=== PATIENT | female | born 1995 | race American Indian/Alaskan Native ===

== ENCOUNTER 2020-08-23 13:51 | Emergency (ER) | payer SELFPAY ==
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
--- NOTE | 2020-08-23 15:00 | Cat Scan Report ---
CT head/brain wo con INDICATION: headache with left periorbital pain and swelling. TECHNIQUE: Routine CT head without contrast. All CT scans at this location are performed using CT dos e reduction for ALARA by means of automated exposure control. COMPARISON: None. FINDINGS: BRAIN / INTRACRANIAL CONTENTS: No acute hemorrhage, mass effect, midline shift, or hydrocephalus. No appreciable acute large territorial or lacunar infarct. No chronic infarct or focal atrophy. Normal b rain volume and ventricular/sulcal size for age. ORBITS: See separate maxillofacial CT report. SINUSES / MASTOIDS: No significant abnormality of visualized sinuses and mastoid air cells. ADDITIONAL FINDINGS: None. IMPRESSION: 1. No acute intracranial abnormality. Signer Name: James Dent MD Signed: 08/23/2020 2:56 PM Workstation Name: [id number]
--- NOTE | 2020-08-23 15:04 | Cat Scan Report ---
CT MAXILLOFACIAL WITHOUT CONTRAST INDICATION: headache with left periorbital pain and swelling. TECHNIQUE: All CT scans at this location are performed using CT dose reduction for ALARA by means of automated e xposure control. COMPARISON: None available. FINDINGS: There are mildly displaced bilateral nasal fractures. There is also a moderately displaced fracture of the left medial orbital wall with slight herniation of the left medial rectus muscle into the fracture defect. There is some air within the left orbit. T here is no evidence of injury to the globe. There are no metallic foreign bodies. Paranasal sinuses appear clear. Mastoid air cells are clear. IMPRESSION: 1. Moderately displaced fracture of the left medial orbital wall with partial herniation of the adj acent medial rectus into the fracture defect, placing that muscle at risk of possible entrapment, for which clinical evaluation is advised. 2. Mildly displaced bilateral nasal fractures. Signer Name: James Dent MD Signed: 08/23/2020 3:00 PM Workstation Name: [id number]
[2020-08-23] MEDS ORDERED: TETRACAINE 0.5% OPHTH SOLN 4ML OS STA (18:00)
[2020-08-23] MEDS ORDERED: MORPHINE 4 MG/1 ML INJ IV ONE (18:00)
[2020-08-23] MEDS ORDERED: SODIUM CHLORIDE 0.9% 500 ML 500 ML IV ONE (18:00)
[2020-08-23] MEDS ORDERED: FLUORESCEIN 1 MG STRIP OP ONE (18:00)
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
[2020-08-23] MEDS ORDERED: AMPICILLIN/SULBACTA 3GM/100ML 3 GM/100 ML BAG IV ONE (19:00)
[2020-08-23 20:24] VITALS: BP 113/57
== END 2020-08-23 20:50 | disposition short-term general hospital (02) ==
LOC: ED 13:51
DX: S02.832A Fracture of medial orbital wall, left side, initial encounter for closed fracture (principal); S02.92XA Unspecified fracture of facial bones, initial encounter for closed fracture; Y04.2XXA Assault by strike against or bumped into by another person, initial encounter; Y93.89 Activity, other specified; Y92.89 Other specified places as the place of occurrence of the external cause; Y99.8 Other external cause status
CPT/HCPCS: 36556; 70450; 70486; 96365; 96375; 99285; J0295; J2270; J7040